=== PATIENT | female | born 1935 | race Caucasian/White ===

== ENCOUNTER 2021-03-16 09:50 | Emergency (ER) | payer MEDICARE, BC ==
[~2021-03-16] VITALS: Ht 157.5 cm; Wt 47.0 kg
[2021-03-16 10:46] VITALS: BP 150/91
== END 2021-03-16 11:34 | disposition home or self-care (01) ==
LOC: ER 09:50
DX: S81.802A Unspecified open wound, left lower leg, initial encounter (principal); X58.XXXA Exposure to other specified factors, initial encounter; Y93.89 Activity, other specified; Y92.89 Other specified places as the place of occurrence of the external cause; Y99.8 Other external cause status
CPT/HCPCS: 99281